=== PATIENT | female | born 1965 | race Caucasian/White ===

== ENCOUNTER 2017-09-17 14:55 | Emergency (ER) | payer SELFPAY ==
[2017-09-17 15:20] VITALS: TEMP 97.8
--- NOTE | 2017-09-17 16:04 | ED PDOC ---
Lower Extremity Pain/Injury Time Seen by Provider: 09/17/17 15:21 Chief Complaint (Nursing): Lower Extremity Problem/Injury Chief Complaint (Provider): Left ankle pain History Per: Patient History/Exam Limitations: no limitations Onset/Duration Of Symptoms: Days (x2) Current Symptoms Are (Timing): Still Present Additional Complaint(s): 51 y/o female presents to the emergency department for evaluation of a left ankle injury. Patient states yesterday she stepped into a pothole and twisted the left ankle. She denies any numbness, tingling, or other injury. PMD: provider in [facility] Past Medical History Reviewed: Historical Data, Nursing Documentation, Vital Signs Vital Signs: Last Vital Signs Temp 97.8 F 09/17/17 15:17 Pulse 67 09/17/17 15:17 Resp 16 09/17/17 15:17 BP 168/101 H 09/17/17 15:17 Pulse Ox 99 09/17/17 15:17 - Medical History PMH: Malignancy (Breast cancer) - Surgical History Other surgeries: Surgery for left breast CA and left lymph node removal - Family History Family History: States: Unknown Family Hx - Social History Current smoker - smoking cessation education provided: No Alcohol: None Drugs: Denies - Home Medications Home Medications: Ambulatory Orders Medication Instructions Recorded Aspirin [Aspirin Chewable] 324 mg PO ONCE #4 ctb 09/17/17 oxyCODONE/Acetaminophen [Percocet 1 ea PO Q8 PRN #10 tab 09/17/17 5/325 mg Tab] - Allergies Allergies/Adverse Reactions: Allergies Allergy/AdvReac Type Severity Reaction Status Date / Time No Known Allergies Allergy Verified 09/17/17 15:35 Review of Systems ROS Statement: Except As Marked, All Systems Reviewed And Found Negative Musculoskeletal: Positive for: Foot Pain (left ankle) Neurological: Negative for: Numbness, Other (tingling) Physical Exam - Reviewed Nursing Documentation Reviewed: Yes Vital Signs Reviewed: Yes - Physical Exam Appears: Positive for: No Acute Distress Head Exam: Positive for: ATRAUMATIC, NORMOCEPHALIC Skin: Positive for: Normal Color Pulses-Dorsalis Pedis (L): 2+ Pulses-Dorsalis Pedis (R): 2+ Extremity: Positive for: Capillary Refill (< 2 sec), Swelling (Left ankle with moderate swelling and tenderness to lateral malleolus; mild swelling and tenderness to dorsum of left foot) Neurologic/Psych: Positive for: Alert, Oriented - ECG O2 Sat by Pulse Oximetry: 99 (RA) Pulse Ox Interpretation: Normal - Other Rad x-ray left ankle X-Ray: Interpreted by Me, Viewed By Me X-Ray Interpretation: Questionable avulsion fracture at distal fibula Medical Decision Making Medical Decision Making: Impression: Left ankle injury Time: 15:35 Initial Plan: --Motrin 600 mg PO --X-Ray left ankle --X-Ray left foot Patient informed of x-ray results. Podiatry resident Dr. Baptiste also viewed x-ray and agrees with findings and immobilized patient in the ED. Patient states she is flying back to [facility] via an 8 hour flight on Monday. Patient was advised to take 1 dose of 324mg Aspirin prior to flight. Scribe Attestation: Documented by Fifi Reis, acting as a scribe for Juan Suero PA-C. Provider Scribe Attestation: All medical record entries made by the Scribe were at my direction and personally dictated by me. I have reviewed the chart and agree that the record accurately reflects my personal performance of the history, physical exam, medical decision making, and the department course for this patient. I have also personally directed, reviewed, and agree with the discharge instructions and disposition. Disposition - Clinical Impression Clinical Impression: Ankle fracture - Patient ED Disposition Is Patient to be Admitted: No - Disposition Disposition: Routine/Home Disposition Time: 17:14 Condition: STABLE Additional Instructions: Take 1 dose of Aspirin 324mg on 09/19/2017 before your flight to prevent blood clots. Follow up with an orthopedist or media relations manager in [facility] for further evaluation. Return to ED immediately if symptoms worsen. Please allow patient to use crutches during plane ride. Prescriptions: Aspirin [Aspirin Chewable] 324 mg PO ONCE #4 ctb oxyCODONE/Acetaminophen [Percocet 5/325 mg Tab] 1 ea PO Q8 PRN #10 tab PRN Reason: Pain Instructions: How to Use Crutches, Ankle Fracture (DC) Forms: [employer] (Kittitian) Print Language: ANDORRAN
--- NOTE | 2017-09-17 16:49 | RAD ---
PROCEDURE: Left Foot Radiographs. HISTORY: trauma COMPARISON: None. FINDINGS: BONES: No acute fracture. JOINTS: Unremarkable. SOFT TISSUES: Normal. OTHER FINDINGS: None. IMPRESSION: No demonstrated fracture or distal.
--- NOTE | 2017-09-17 16:49 | RAD ---
PROCEDURE: Left Ankle Radiographs. HISTORY: trauma COMPARISON: None FINDINGS: BONES: Well corticated ossicles at the lateral malleolar tip. No acute fracture. JOINTS: Ankle mortise maintained. Talar dome intact SOFT TISSUES: Lateral malleolar soft tissue swelling. OTHER FINDINGS: Ankle joint effusion. IMPRESSION: Well corticated ossicles at the lateral malleolar tip. Lateral malleolar soft tissue swelling small ankle joint effusion without demonstrated fracture or dislocation.
[2017-09-17 17:35] VITALS: BP 165/93; PULSE 70; RESP 18
[2017-09-17 17:42] VITALS: O2SAT 99
--- NOTE | 2017-09-17 18:32 | CP.PCM.CON ---
History of Present Illness - History of Present Illness History of Present Illness: 51F seen in ED complaining of left ankle pain after twisting her ankle in a pot hole yesterday afternoon. Patient states that she is unable to bear weight due to the pain and rates it a 6/10. Patient states that her pain is worst at her lateral malleoli. Patient denies hearing any pops or cracks at time of injury but states that her ankle has become increasingly more swollen over the last day. She has taken anti-inflammatories at home and iced the area. She is AAO x 3 at time of examination. She denies any further pedal complaints at this time. Denies any recent N/V/F/C/CP/SOB/D/posterior calf pain when squeezed. Patient also states that she is visiting the [facility] [email or web address] from [facility] and will be returning to [facility] on Monday Review of Systems - Review of Systems Review of Systems: ROS as per HPI Past Patient History - Past Social History Alcohol: None Drugs: Denies - HEMATOLOGICAL/ONCOLOGICAL Hx Cancer: Yes (breast Ca) - PSYCHIATRIC Hx Substance Use: No - SURGICAL HISTORY Other/Comment: breast ca surgery-lymph node removal left breast - ANESTHESIA Hx Anesthesia: Yes Meds Home Medications: Home Medication List Medication Instructions Recorded Confirmed Type Aspirin [Aspirin Chewable] 324 mg PO ONCE #4 ctb 09/17/17 Rx oxyCODONE/Acetaminophen [Percocet 1 ea PO Q8 PRN #10 tab 09/17/17 Rx 5/325 mg Tab] Allergies/Adverse Reactions: Allergies Allergy/AdvReac Type Severity Reaction Status Date / Time No Known Allergies Allergy Verified 09/17/17 15:35 Physical Exam - Constitutional Appears: Well, Non-toxic, No Acute Distress - Extremities Exam Additional comments: LLE focused exam: Vasc: DP/PT pulses fully palpable 2/4 b/l. Skin temperature warm to warm from proximal to distal. CFT < 3 seconds to all digits b/l. Moderate edema noted to level of lateral malleoli Neuro: Epicritic and protective sensation grossly intact b/l Derm: No open lesions, wounds, maceration, xerosis, abnormal pigmentation or abnormal growths noted MSK: POP to lateral left malleoli. Pain with AROM and PROM of left ankle secondary to guarding. No POP to medial malleoli, achilles tendon or its insertion site, styloid process of fifth met, or navicular tuberosity - Neurological Exam Neurological exam: Alert, Oriented x3 - Psychiatric Exam Psychiatric exam: Normal Affect, Normal Mood Results - Vital Signs Recent Vital Signs: Last Vital Signs Temp 97.8 F 09/17/17 15:17 Pulse 70 09/17/17 17:33 Resp 18 09/17/17 17:33 BP 165/93 H 09/17/17 17:33 Pulse Ox 99 09/17/17 17:41 Assessment & Plan - Assessment and Plan (Free Text) Assessment: 51F seen in ED for acute avulsion fracture of distal left lateral fibula Plan: Patient seen and evaluated Charts, labs, vitals reviewed Plan discussed with attending Dr. Hernandez Left ankle xray reviewed: Probable avulsion fracture of distal left fibula without displacement Patient placed in posterior splint and given crutches Instructed to practice RICE therapy at home Rx Percocet for breakthrough pain, Rx Aspirin for DVT prophylaxis on flight back to [facility] - Date & Time Date: 09/17/17 Time: 18:41
== END 2017-09-17 17:43 | disposition home or self-care (01) ==
LOC: H.ER 14:55
DX: S82.832A Other fracture of upper and lower end of left fibula, initial encounter for closed fracture (principal); X50.9XXA Other and unspecified overexertion or strenuous movements or postures, initial encounter; Y92.410 Unspecified street and highway as the place of occurrence of the external cause; Z79.82 Long term (current) use of aspirin; Z85.3 Personal history of malignant neoplasm of breast